=== PATIENT | female | born 1965 | race Caucasian/White ===

== ENCOUNTER 2017-12-06 01:42 | Emergency (ER) | payer OTHER ==
[2017-12-06] MEDS: KETOROLAC 30 MG INJ IM (04:29)
== END 2017-12-06 04:39 | disposition home or self-care (01) ==
LOC: FTE 01:42
DX: H92.02 Otalgia, left ear (principal); F17.210 Nicotine dependence, cigarettes, uncomplicated; J02.9 Acute pharyngitis, unspecified; M25.521 Pain in right elbow
CPT/HCPCS: 96372; 99284-25